=== PATIENT | male | born 1940 | race Two or more races ===

== ENCOUNTER 2017-11-28 08:00 | Inpatient (IN) | payer OTHER ==
--- NOTE | 2017-11-28 07:30 | HP ---
Admitting History and Physical - Admission Chief Complaint: left knee osteoarthritis x years History of Present Illness: 77-year-old male presenting in regard to his left knee. Patient has a long standing history of left knee osteoarthritis. Patient complains of pain, limited range of motion, difficulty ambulating, and acoustical tea with activities of daily living. Patient has failed conservative treatment measures including PO medications, activity modification, exercise program, and injections. At this point as patient has failed conservative treatment measures , he would like to proceed with surgical intervention, a left total knee arthroplasty. History Source: Patient - Past Medical History Cardiovascular: Yes: Hyperlipdemia Musculoskeletal: Yes: Osteoarthritis - Past Surgical History Additional Past Surgical History: see written history & physical. - Smoking History Smoking history: Never smoked Have you smoked in the past 12 months: No - Alcohol/Substance Use Hx Alcohol Use: No Home Medications - Allergies Allergies/Adverse Reactions: Allergies Allergy/AdvReac Type Severity Reaction Status Date / Time No Known Allergies Allergy Verified 11/21/17 17:41 - Home Medications Home Medications: Ambulatory Orders Gabapentin [Neurontin] 100 mg PO TID 11/21/17 Meloxicam 15 mg PO DAILY 11/21/17 Simvastatin 40 mg PO HS 11/21/17 clonazePAM [Klonopin -] 0.5 mg PO TID 11/21/17 Physical Examination Constitutional: Yes: Well Nourished, No Distress Eyes: Yes: Conjunctiva Clear HENT: Yes: Atraumatic, Normocephalic Neck: Yes: Supple Cardiovascular: Yes: Regular Rate and Rhythm Respiratory: Yes: Regular Gastrointestinal: Yes: Soft ...Rectal Exam: Yes: Deferred Musculoskeletal: Yes: Joint Stiffness (left knee), Joint Swelling (left knee) Assessment/Plan 77-year-old male presenting in regard to his left knee. Patient has a long standing history of left knee osteoarthritis. Patient complains of pain, limited range of motion, difficulty ambulating, and acoustical tea with activities of daily living. Patient has failed conservative treatment measures including PO medications, activity modification, exercise program, and injections. At this point as patient has failed conservative treatment measures , he would like to proceed with surgical intervention. Pros, cons, risks, benefits and alternatives of a left total knee arthroplasty were discussed at length. Patient confirma their understanding and consents to proceed with a left total knee arthroplasty.
[~2017-11-28 08:00] MED LIST: CEFAZOLIN 1 GM/D5W 1 GM/50 ML BAG IVPB ONE; ROPIVICAINE 0.2%/MORPH PF/KETOROLAC - 51ML DISP.SYRINGE IA ONE; TRANEXAMIC ACID 1000 MG/10 ML VIAL IVPUSH ONE
[2017-11-28] MEDS ORDERED: CELECOXIB 200 MG CAPSULE ONE (09:28)
[2017-11-28] MEDS ORDERED: PANTOPRAZOLE 40 MG TABLET (FP) ONE (09:28)
[2017-11-28] MEDS ORDERED: oxyCODONE HCL 10 MG SUSTAINED ACTING TABLET ONE (09:28)
[2017-11-28] MEDS ORDERED: GABAPENTIN 300 MG CAPSULE (FP) ONE (09:28)
[2017-11-28] MEDS: PANTOPRAZOLE 40 MG TABLET (FP) PO ONE (09:45)
[2017-11-28] MEDS: CELECOXIB 200 MG CAPSULE PO ONE (09:45)
[2017-11-28] MEDS: GABAPENTIN 300 MG CAPSULE (FP) PO ONE (09:45)
[2017-11-28] MEDS: oxyCODONE HCL 10 MG SUSTAINED ACTING TABLET PO ONE (09:45)
[2017-11-28] MEDS ORDERED: MIDAZOLAM HCL 2 MG/2 ML SINGLE DOSE VIAL ONE (10:43)
[2017-11-28] MEDS ORDERED: BUPIVACAINE LIPOSOME/PF (EXPAREL) 266 MG/20 ML VIAL ONE (10:43)
[2017-11-28] MEDS ORDERED: BUPIVACAINE HCL/PF (5 MG/ML) 30 ML VIAL IJ ONE (10:44)
[2017-11-28] MEDS ORDERED: ceFAZolin SODIUM 1 GM VIAL ONE ×3 (11:30→12:50)
[2017-11-28] MEDS ORDERED: VANCOMYCIN 1,000 MG VIAL (RESTRICTED TO ID ONLY) ONE (11:30)
[2017-11-28] MEDS ORDERED: TRANEXAMIC ACID 1000 MG/10 ML VIAL ONE ×2 (11:30→12:46)
[2017-11-28] MEDS ORDERED: LIDOCAINE HCL/PF 2% SDV 5ML VIAL ONE (12:19)
[2017-11-28] MEDS ORDERED: ROPIVICAINE 0.2%/MORPH PF/KETOROLAC - 51ML DISP.SYRINGE IA ONE ×3 (12:51→16:31)
--- NOTE | 2017-11-28 16:58 | SURG ---
Surgery Embedded Systems Designer Note Embedded Systems Designer: Shant Wang PA-C Date of Service: 11/28/17 Diagnosis: Left knee degenerative joint disease Procedure: Left total knee replacement I was present for the entirety of the operative procedure. For further detail, please refer to operative report.
--- NOTE | 2017-11-28 16:59 | OP ---
Operative Note - Note: Operative Date: 11/28/17 Pre-Operative Diagnosis: Left knee OA Operation: Left TKA Post-Operative Diagnosis: Same as Pre-op Surgeon: Henrry Hughes Battery Parts Assembler: Shant Wang Anesthesia: Spinal Estimated Blood Loss (mls): 300
[2017-11-28] MEDS ORDERED: ONDANSETRON 4 MG/2 ML VIAL IVPUSH PRN (17:06)
[2017-11-28] MEDS ORDERED: oxyCODONE HCL 5 MG TABLET PO PRN ×2 (17:06)
[2017-11-28] MEDS ORDERED: MAG HYDROX/AL HYDROX/SIMETH 30 ML UNIT-DOSE CUP PO PRN (17:07)
[2017-11-28] MEDS ORDERED: MAGNESIUM HYDROX 2400MG/30ML ORAL SUSPENSION 30 ML CUP PO PRN (17:07)
[2017-11-28] MEDS ORDERED: LACTATED RINGERS SOLUTION 1,000 ML IV SCH (17:15)
[2017-11-28] MEDS ORDERED: KETOROLAC TROMETHAMINE 30 MG/1 ML VIAL IVPUSH SCH (17:15)
[2017-11-28] MEDS ORDERED: traMADol HCL 50 MG TABLET ONE (17:19)
[2017-11-28] MEDS ORDERED: KETOROLAC TROMETHAMINE 30 MG/1 ML VIAL ONE (17:19)
[2017-11-28] MEDS ORDERED: ACETAMINOPHEN INJECTION 100 ML IVPB ONE (17:19)
[2017-11-28] MEDS: ACETAMINOPHEN 1000 MG/100 ML VIAL (NON FORMULARY) IVPB ONE (17:30)
[2017-11-28] MEDS ORDERED: CEFAZOLIN 1 GM/D5W 1 GM/50 ML BAG IVPB SCH (18:00)
[2017-11-28] MEDS ORDERED: traMADol HCL 50 MG TABLET PO SCH (18:00)
[2017-11-28] MEDS ORDERED: ACETAMINOPHEN 325 MG TABLET (FP) PO SCH (18:00)
[2017-11-28] MEDS: ONDANSETRON 4 MG/2 ML VIAL IVPUSH PRN (21:06)
[2017-11-28] MEDS: oxyCODONE HCL 10 MG SUSTAINED ACTING TABLET PO SCH (22:00)
[2017-11-28] MEDS: CEFAZOLIN 1 GM/D5W 1 GM/50 ML BAG IVPB SCH (23:01)
[2017-11-28] MEDS: CELECOXIB 200 MG CAPSULE PO SCH (23:01)
[2017-11-28] MEDS: ATORVASTATIN CA 20 MG TABLET (FP) PO SCH (23:02)
[2017-11-28] MEDS: SENNOSIDES/DOCUSATE COMBO (SENNA PLUS) TABLET (UD) PO SCH (23:02)
[2017-11-28] MEDS: ACETAMINOPHEN 325 MG TABLET (FP) PO SCH (23:04)
[2017-11-28] MEDS: ASCORBIC ACID 500 MG TABLET (FP) PO SCH (23:04)
[2017-11-28] MEDS: GABAPENTIN 300 MG CAPSULE (FP) PO SCH ×2 (23:06)
[2017-11-28] MEDS: KETOROLAC TROMETHAMINE 30 MG/1 ML VIAL IVPUSH SCH (23:07)
[2017-11-29] MEDS: clonazePAM 0.5 MG TABLET PO SCH ×4 (00:09→21:16)
[2017-11-29] MEDS: traMADol HCL 50 MG TABLET PO SCH ×5 (00:25→23:38)
[2017-11-29] MEDS ORDERED: DEXAMETHASONE SOD PHOSPHATE 10 MG/1 ML VIAL IVPB ONE (01:00)
[2017-11-29] MEDS ORDERED: DEXAMETHASONE SOD PHOSPHATE 10 MG/1 ML VIAL ONE (01:14)
[2017-11-29] MEDS: CEFAZOLIN 1 GM/D5W 1 GM/50 ML BAG IVPB SCH (04:04)
[2017-11-29] MEDS ORDERED: traMADol HCL 50 MG TABLET ONE (04:47)
[2017-11-29] MEDS: ACETAMINOPHEN 325 MG TABLET (FP) PO SCH ×4 (05:49→23:38)
[2017-11-29] MEDS: KETOROLAC TROMETHAMINE 30 MG/1 ML VIAL IVPUSH SCH ×2 (05:50→11:48)
[2017-11-29] MEDS: CELECOXIB 200 MG CAPSULE PO ONE (07:35)
[2017-11-29] MEDS: GABAPENTIN 300 MG CAPSULE (FP) PO ONE (07:35)
[2017-11-29] MEDS: PANTOPRAZOLE 40 MG TABLET (FP) PO ONE (07:35)
[2017-11-29] MEDS: oxyCODONE HCL 10 MG SUSTAINED ACTING TABLET PO ONE (07:35)
[2017-11-29] MEDS: LACTATED RINGERS SOLUTION 1,000 ML IV SCH ×2 (07:36→17:18)
[2017-11-29] MEDS: ACETAMINOPHEN 1000 MG/100 ML VIAL (NON FORMULARY) IVPB ONE (07:36)
[2017-11-29 08:10] LABS: HEMATOCRIT 37.7 % (35.4-49); HEMOGLOBIN 13.2 GM/dl (11.7-16.9); MCHC 35.1 g/dl (32.0-35.9); MEAN CELL VOLUME 88.4 fl (80-96); MEAN PLT VOLUME 7.4 fl (7.5-11.1); PLATELET COUNT 327 K/MM3 (134-434); RBC 4.26 M/mm3 (4.00-5.60); RDW 13.1 % (11.9-15.9); WHITE BLOOD COUNT 7.2 K/mm3 (4.0-10.8)
[2017-11-29] MEDS: ASPIRIN 325 MG TABLET PO SCH (08:17)
[2017-11-29 08:39] LABS: ANION GAP 7 (8-16); BLOOD UREA NITROGEN 15 mg/dl (7-18); CALCIUM 8.8 mg/dl (8.4-10.2); CHLORIDE 98 mmol/L (98-107); CO2 25 mmol/L (22-28); CREATININE 0.8 mg/dl (0.6-1.3); GLUCOSE,RANDOM 139 mg/dl (74-106); POTASSIUM 4.2 mmol/L (3.5-5.1); SODIUM 130 mmol/L (136-145)
[2017-11-29] MEDS: PANTOPRAZOLE 40 MG TABLET (FP) PO SCH (09:46)
[2017-11-29] MEDS: CELECOXIB 200 MG CAPSULE PO SCH ×2 (09:46→21:16)
[2017-11-29] MEDS: GABAPENTIN 300 MG CAPSULE (FP) PO SCH ×4 (09:46→21:17)
[2017-11-29] MEDS: SENNOSIDES/DOCUSATE COMBO (SENNA PLUS) TABLET (UD) PO SCH ×2 (09:46→21:18)
[2017-11-29] MEDS: MULTIVITAMINS (DAILY MVI) TABLET (FP) PO SCH (09:46)
[2017-11-29] MEDS: ASCORBIC ACID 500 MG TABLET (FP) PO SCH ×2 (09:46→21:18)
[2017-11-29] MEDS ORDERED: oxyCODONE HCL 10 MG SUSTAINED ACTING TABLET ONE (09:50)
[2017-11-29] MEDS: oxyCODONE HCL 10 MG SUSTAINED ACTING TABLET PO SCH ×2 (09:51→21:17)
--- NOTE | 2017-11-29 10:08 | PN ---
Progress Note, Physician Chief Complaint: day #/1 s/p left TKR - Current Medication List Current Medications: Active Medications Acetaminophen (Tylenol -) 650 mg PO Q6H [facility] Stop: 12/01/17 23:19 Last Admin: 11/29/17 05:49 Dose: 650 mg Al Hydroxide/Mg Hydroxide (Mylanta Oral Suspension -) 30 ml PO Q4H PRN PRN Reason: DYSPEPSIA Ascorbic Acid (Vitamin C -) 500 mg PO BID [facility] Last Admin: 11/29/17 09:46 Dose: 500 mg Aspirin (Asa -) 325 mg PO DAILY@0800 [facility] Last Admin: 11/29/17 08:17 Dose: 325 mg Atorvastatin Calcium (Lipitor -) 20 mg PO HS [facility] Last Admin: 11/28/17 23:02 Dose: 20 mg Celecoxib (Celebrex -) 200 mg PO BID [facility] Last Admin: 11/29/17 09:46 Dose: 200 mg Clonazepam (Klonopin -) 0.5 mg PO TID [facility] Last Admin: 11/29/17 05:58 Dose: 0.5 mg Fentanyl (Sublimaze Injection -) 50 mcg IVPUSH [id number] PRN PRN Reason: PAIN-PACU ORDER X 4 DOSES ONLY Gabapentin (Neurontin -) 300 mg PO BID [facility] Last Admin: 11/29/17 09:46 Dose: 300 mg Gabapentin (Neurontin -) 300 mg PO BID [facility] Stop: 12/01/17 21:59 Last Admin: 11/29/17 09:52 Dose: Not Given Lactated Ringer's (Lactated Ringers Solution) 1,000 mls @ 125 mls/hr IV ASDIR [facility] Last Admin: 11/29/17 07:36 Dose: Not Given Ketorolac Tromethamine (Toradol Injection -) 15 mg IVPUSH Q6H [facility] Stop: 11/29/17 11:51 Last Admin: 11/29/17 05:50 Dose: 15 mg Magnesium Hydroxide (Milk Of Magnesia -) 30 ml PO PRN PRN PRN Reason: CONSTIPATION Multivitamins/Minerals/Vitamin C (Tab-A-Vit -) 1 tab PO DAILY [facility] Last Admin: 11/29/17 09:46 Dose: 1 tab Ondansetron HCl (Zofran Injection) 4 mg IVPUSH Q6H PRN PRN Reason: NAUSEA Last Admin: 11/28/17 21:06 Dose: 4 mg Oxycodone HCl (Roxicodone -) 5 mg PO Q3H PRN PRN Reason: PAIN LEVEL 1-5 Oxycodone HCl (Roxicodone -) 10 mg PO Q3H PRN PRN Reason: PAIN LEVEL 6-10 Oxycodone HCl (Oxycontin -) 10 mg PO BID [facility] Stop: 12/01/17 17:06 Last Admin: 11/29/17 09:51 Dose: 10 mg Pantoprazole Sodium (Protonix -) 40 mg PO DAILY [facility] Last Admin: 11/29/17 09:46 Dose: 40 mg Senna/Docusate Sodium (Pericolace -) 1 tablet PO BID [facility] Last Admin: 11/29/17 09:46 Dose: 1 tablet Tramadol HCl (Ultram -) 50 mg PO Q6H [facility] Last Admin: 11/29/17 05:50 Dose: 50 mg - Objective Vital Signs: Vital Signs Temperature 97.8 F 11/29/17 09:42 Pulse Rate 84 11/29/17 09:42 Respiratory Rate 18 11/29/17 09:42 Blood Pressure 107/66 11/29/17 09:42 O2 Sat by Pulse Oximetry (%) 93 L 11/29/17 06:37 Labs: CBC, BMP 11/29/17 07:25 11/29/17 07:25 Assessment/Plan Pt ambulating today, currently resting comfortably in chair. Says he is not having much postop pain
[2017-11-29] MEDS ORDERED: PT OWN MED DRAWER 7, Y5N ONE (11:46)
[2017-11-29 12:59] VITALS: BMI 20.3
[2017-11-29] MEDS: ATORVASTATIN CA 20 MG TABLET (FP) PO SCH (21:18)
[2017-11-30] MEDS: traMADol HCL 50 MG TABLET PO SCH ×2 (05:48→11:17)
[2017-11-30] MEDS: clonazePAM 0.5 MG TABLET PO SCH (05:50)
[2017-11-30] MEDS: ACETAMINOPHEN 325 MG TABLET (FP) PO SCH (05:50)
[2017-11-30 06:20] VITALS: BP 103/62; PULSE 95; TEMP 97.6
[2017-11-30 08:42] LABS: HEMATOCRIT 35.3 % (35.4-49); HEMOGLOBIN 12.1 GM/dl (11.7-16.9); MCH 30.5 pg (25.7-33.7); MCHC 34.4 g/dl (32.0-35.9); MEAN CELL VOLUME 88.5 fl (80-96); MEAN PLT VOLUME 7.5 fl (7.5-11.1); PLATELET COUNT 353 K/MM3 (134-434); RBC 3.98 M/mm3 (4.00-5.60)
[2017-11-30] MEDS: ASPIRIN 325 MG TABLET PO SCH (08:47)
[2017-11-30] MEDS: MULTIVITAMINS (DAILY MVI) TABLET (FP) PO SCH (09:14)
[2017-11-30] MEDS: GABAPENTIN 300 MG CAPSULE (FP) PO SCH (09:14)
[2017-11-30] MEDS: ASCORBIC ACID 500 MG TABLET (FP) PO SCH (09:14)
[2017-11-30] MEDS: oxyCODONE HCL 10 MG SUSTAINED ACTING TABLET PO SCH (09:14)
[2017-11-30] MEDS: SENNOSIDES/DOCUSATE COMBO (SENNA PLUS) TABLET (UD) PO SCH (09:14)
[2017-11-30] MEDS: CELECOXIB 200 MG CAPSULE PO SCH (09:16)
[2017-11-30] MEDS: PANTOPRAZOLE 40 MG TABLET (FP) PO SCH (09:16)
--- NOTE | 2017-11-30 10:03 | DS ---
Physical Examination Vital Signs: Vital Signs Temperature 97.6 F 11/30/17 06:19 Pulse Rate 95 H 11/30/17 06:19 Respiratory Rate 16 11/30/17 07:48 Blood Pressure 103/62 11/30/17 06:19 O2 Sat by Pulse Oximetry (%) 97 11/30/17 07:48 Labs: CBC, BMP 11/30/17 07:20 11/29/17 07:25 Discharge Summary Reason For Visit: LEFT KNEE OSTEOARTHRITIS Current Active Problems Osteoarthritis of left knee (Acute) Procedures: Principal: Left TKA Hospital Course: Admitted for elective surgery. Procedure performed without complications. Pt received postoperative antibiotic prophylaxis and DVT ppx. Ambulated with physical therapy. Stable for discharge home with outpatient followup. Condition: Stable - Instructions Diet, Activity, Other Instructions: Dr Hughes - Knee Replacement Instructions Keep the Aquacel dressing on until removed by Dr. Hughes in 10-14 days - it is antibacterial and waterproof and you can shower with it on. Call the office for a follow-up appointment with Dr. Hughes in 10-14 days. Take one Aspirin 325mg daily for 6 weeks to prevent blood clots in your legs. Take one Pantoprazole 40mg daily for 6 weeks to protect against heartburn and ulcers. Resume taking meloxicam 15mg daily to reduce swelling and inflammation. Take Cephalexin (antibiotic) 3x/day for 10 days to help prevent skin infection. Take a multivitamin, stool softener, and extra vitamin C supplement daily. For pain: *Mild pain (1-3/10): Take 1 Tramadol tablet every 4 hours as needed. Moderate pain (4-6/10): Take 1 Tramadol tablet and 1 Percocet tablet every 4 hours as needed. Severe pain (7-10/10): Take 1 Tramadol tablet and 2 Percocet tablets every 4 hours as needed. Activity: You can put as much weight on the operative leg as you want. Right after you get home, there will be a physical therapist coming to your house to help you walk around and bend/straighten your knee. After your follow-up appointment, you will be sent for more intensive outpatient physical therapy which will include machines and equipment that the home therapist cannot bring to your house. Always use a walker or cane for balance and to prevent falls. Expect to see swelling/bruising from the operative site all the way down to your toes. Wear the compression stocking on the operative side during the day to minimize how much swelling there is in your foot/ankle. Don't wear the stocking at night. You don't have to wear a stocking on the other side. Disposition: VNS/HOME HEALTH CARE - Home Medications Comprehensive Discharge Medication List: Ambulatory Orders Gabapentin [Neurontin] 100 mg PO TID 11/21/17 Simvastatin 40 mg PO HS 11/21/17 clonazePAM [Klonopin -] 0.5 mg PO TID 11/21/17 Ascorbic Acid [Vitamin C -] 500 mg PO BID tablet 11/30/17 Aspirin [ASA -] 325 mg PO DAILY@0800 tablet 11/30/17 Cephalexin Monohydrate [Keflex -] 500 mg PO TID #30 capsule 11/30/17 Meloxicam 15 mg PO DAILY #60 tablet 11/30/17 Multivitamins [Multivit ([facility] Formulary)] 1 tab PO DAILY tab 11/30/17 Oxycodone HCl/Acetaminophen [Percocet 5-325 mg Tablet] 1 - 2 tab PO Q4H PRN #60 tablet MDD 8 11/30/17 Pantoprazole Sodium [Protonix -] 40 mg PO DAILY #40 tablet.ec 11/30/17 Sennosides/Docusate Sodium [Pericolace -] 1 tablet PO BID tablet 11/30/17 traMADol HCL [Ultram -] 50 mg PO Q4H PRN #90 tablet MDD 6 11/30/17
[2017-11-30] MEDS: ONDANSETRON 4 MG/2 ML VIAL IVPUSH PRN (11:17)
--- NOTE | 2017-12-03 17:33 | PATH ---
Surgical Pathology Report Patient Name: DEA SLATER Med. Rec. #: [id number] /Age/Gender: 1940 (Age: 77) / M Account: [id number] Location: [facility] MED-SURG Taken: 11/28/2017 Received: 11/28/2017 Reported: 12/03/2017 Physicians: Henrry Hughes M.D. Specimen(s) Received LEFT KNEE BONE AND SOFT TISSUE Clinical History Osteoarthritis left knee Final Diagnosis LEFT KNEE BONE AND SOFT TISSUE: DEGENERATIVE JOINT DISEASE, LEFT KNEE. Electronically Signed Bonnie Smith M.D. Gross Description Received in formalin labeled "left knee bone and soft tissue," is a 15.0 x 14.5 x 2.3 cm aggregate of multiple soto, irregular portions of bone and soft tissue, consistent with knee bones. There are multiple areas of eburnation present, measuring up to 3.8 cm in greatest dimension. The remaining articular surfaces are soto-yellow and diffusely granular. The underlying trabecular bone is yellow and hard. Petrographer sections are submitted in one cassette, following decalcification. /11/29/2017 saudi11/29/2017
--- NOTE | 2017-12-05 08:36 | SPEC ---
DATE OF OPERATION: 11/28/2017 PREOPERATIVE DIAGNOSIS: Left knee osteoarthritis. POSTOPERATIVE DIAGNOSIS: Left knee osteoarthritis. PROCEDURE: Left total knee replacement. ATTENDING: Irving Jett MD PLUMBING DESIGNER: ANESTHESIA: Spinal plus sedation. ESTIMATED BLOOD LOSS: 300 mL COMPLICATIONS: None. SPECIMENS: Resected bone was sent for pathological analysis. DISPOSITION: The patient was sent to the PACU in stable condition. IMPLANT USED: Alvin Triathlon size 6 femoral component, size 5 tibial component with 50-mm stem, 19-mm total stabilized polyethylene component, 35-mm patellar component. INDICATIONS: This is a 77-year-old male who presented to the office with severe bilateral knee arthritis. He had a significant varus deformity and walked with a varus thrust gait. He was initially treated nonoperatively with injections, medications, and physical therapy but failed conservative management. He was therefore indicated for a left total knee replacement. The risks, benefits, and alternatives to the procedure were explained to the patient in great detail, and he elected to proceed with the surgery. DESCRIPTION OF PROCEDURE: On the day of surgery, the patient was taken to the operating room and placed on the OR table. Spinal anesthesia was administered by the anesthesiologist. The patient was then positioned supine on the table and all bony prominences were padded. A nonsterile tourniquet was placed on the proximal thigh. The knee was then prepped and draped in the usual sterile fashion and intravenous antibiotics were given for infection prophylaxis. A surgical time-out was then performed with the team, and the patients identity, procedure, side, availability of implants, and the administration of antibiotics was confirmed. The leg was then elevated and exsanguinated, and the tourniquet was inflated. With the knee flexed, a midline incision was made and carried down through the subcutaneous fat to the underlying retinaculum. A medial parapatellar arthrotomy was performed. This was followed by a subperiosteal dissection of the tissue off the proximal, medial tibia. A portion of fat pad was removed from under the patellar tendon, and a small portion of fat was excised off the distal supracondylar femur. The knee was then flexed further and the anterior horn of the lateral meniscus was released from the midline. Next, the anterior and posterior cruciate ligaments were transected. Osteophytes were removed from both the femur and tibia. Grade 4 changes were noted diffusely throughout the knee. Hohmann retractors were then placed around the distal femur. The starting drill was used to enter the intramedullary canal. The starting point had been chosen by checking the radiographs and anatomy. Proper alignment and intramedullary placement was then confirmed by placing the long narrow cheryl into the femur. Next, the distal femoral cutting guide was adjusted to 6 degrees of valgus and pinned to the femur. The bone resection was assessed using an mahnaz-wing. An approximately 10mm distal cut was made and the cut pieces measured. Once this was complete, the sizing guide was used to determine which size femoral component should be used. Next, the appropriately sized 4-in-1 cutting block was then placed at the correct amount of external rotation and the mahnaz wing was used to assure that there would be no notching of the anterior cortex of the femur. Once this was done, Hohmann retractors were used to protect the medial and lateral collateral ligaments, and all appropriate bone cuts were made. Attention was then turned to the tibia. Hohmann retractors were used to translate the tibia anteriorly and protect the collateral ligaments. The medial and lateral menisci were removed. The extramedullary tibial alignment guide was then placed and adjusted for rotation, varus/valgus, and slope. The height of the cutting block was adjusted to the level of the desired bone resection and then pinned in place. The proximal tibia was then cut with a saw and the bone was removed and measured. Once this was completed, trial components were placed and the knee was taken through a full range of motion. Soft tissue balance was assessed in both flexion and extension and found to be appropriate. The knee was stable throughout the full range of motion. The knee was then put into extension and the patella everted. The synovium around the patella was circumscribed with electrocautery. A caliper was used to measure the patellar thickness and a saw was then used to resect the patella at the chondro-osseous junction. The cut surface was then sized and drilled for the appropriate patellar button, with care taken to medialize it. A trial patella was then placed and the knee was again taken through a full range of motion. The knee was found to have both good balance and good patellar tracking. All of the components were removed except the tibial base plate. The appropriate instrumentation was used to drill and punch the proximal tibia for the keel of the final component. All bony surfaces were then cleaned with pulsatile lavage and dried. Bone cement was then prepared on the back table, and final components were cemented in place in the usual fashion. Extruded cement was removed. The polyethylene trial was placed, the knee was put into extension, and axial pressure was applied for compression while the cement hardened. The patellar button was similarly cemented into place. Once the cement had hardened, the knee was taken through a full range of motion to assess stability, balance, and patellar tracking. This was found to be optimal and the trial polyethylene was exchanged for the appropriately sized real implant. The wound was then thoroughly irrigated with normal saline. No. 1 Polysorb and 0 V-Loc 180 barbed sutures were used to close the arthrotomy. No. 1 Polysorb and 2-0 Polysorb sutures were used in the subcutaneous tissues. The skin was closed using both 3-0 V-Loc 90 suture in a running subcuticular fashion and SwiftSet skin adhesive. Once this was completed a sterile Aquacel dressing and compressive Kiran-wrap was applied. The tourniquet was then deflated and the patient was awakened and taken to the PACU in stable condition. ADDENDUM 1: Due to significant medial erosion due to varus deformity, a tibial reduction osteotomy was performed to remove osteophytes and narrow the tibial plateau to accept the size 5 tibial component. In doing so, we were able to remove most of the defect in the tibia such that a medial augment was not required. There was considerable laxity in the MCL, and for this reason a 19-mm polyethylene component was chosen. ADDENDUM 2: After final implants were placed, a 3-minute dilute Betadine lavage was performed. Following this, the wound was thoroughly irrigated with normal saline and wound closure was begun. IRVING JETT M.D. [id number]
== END 2017-11-30 12:00 | disposition home health service (06) | DRG 470 ==
LOC: FM/S 09:23
PROVIDERS: ADMIT Student in an Organized Health Care Education/Training Program; ATTEND Student in an Organized Health Care Education/Training Program
PROC: 0SRD0JA Replacement of Left Knee Joint with Synthetic Substitute, Uncemented, Open Approach (ICD-10-PCS; principal; 2017-11-28 13:32)
DX: M17.12 Unilateral primary osteoarthritis, left knee (principal); E78.5 Hyperlipidemia, unspecified
CPT/HCPCS: 36415; 73560-TC-LT-FY; 80048; 85027; 88304-TC; 88311-TC; 94010; 94760; 97116-GP; 97162-GP; J0131; J1100

== ENCOUNTER 2018-06-12 08:00 | Inpatient (IN) | payer OTHER ==
[2018-06-03 16:43] VITALS: BMI 19.5
[~2018-06-12 08:00] MED LIST changes: -CEFAZOLIN 1 GM/D5W 1 GM/50 ML BAG IVPB ONE; +CEFAZOLIN 2 GM/D5W 2 GM/50 ML ML IVPB ONE; +CELECOXIB 200 MG CAPSULE PO ONE; +GABAPENTIN 300 MG CAPSULE (FP) PO ONE; +PANTOPRAZOLE 40 MG TABLET (FP) PO ONE; +oxyCODONE HCL 10 MG SUSTAINED ACTING TABLET PO ONE
[2018-06-16] MEDS ORDERED: SODIUM CHLORIDE 0.9% P/F 10 ML VIAL IJ ONE (06:59)
[2018-06-16] MEDS ORDERED: BUPIVACAINE LIPOSOME/PF (EXPAREL) 266 MG/20 ML VIAL ONE (06:59)
[2018-06-16] MEDS ORDERED: MIDAZOLAM HCL 2 MG/2 ML SINGLE DOSE VIAL ONE (06:59)
[2018-06-16] MEDS ORDERED: CELECOXIB 200 MG CAPSULE ONE (07:05)
[2018-06-16] MEDS ORDERED: PANTOPRAZOLE 40 MG TABLET (FP) ONE (07:05)
[2018-06-16] MEDS ORDERED: BUPIVACAINE HCL/PF 0.5% (5MG/ML) 10 ML VIAL ONE (07:13)
[2018-06-16] MEDS ORDERED: LIDOCAINE 1% P/F 10 MG/ML VIAL ONE (07:18)
[2018-06-16] MEDS ORDERED: ceFAZolin SODIUM 1 GM VIAL ONE ×2 (07:30→08:31)
[2018-06-16] MEDS ORDERED: VANCOMYCIN 1,000 MG VIAL (RESTRICTED TO ID ONLY) ONE (07:30)
[2018-06-16] MEDS ORDERED: TRANEXAMIC ACID 1000 MG/10 ML VIAL ONE ×2 (07:30→08:31)
--- NOTE | 2018-06-16 07:49 | HP ---
Admitting History and Physical - Admission Chief Complaint: Right knee osteoarthritis x years History Source: Patient - Past Medical History Cardiovascular: Yes: Hyperlipdemia Gastrointestinal: Yes: GERD Musculoskeletal: Yes: Osteoarthritis Additional Past Medical History: 77 year old male presents today regarding his right knee. Longstanding history of right knee osteoarthritis. Patient complains of pain, limited ROM, difficulty ambulating and difficulty completing ADLs. Patient has failed conservative treatment measures including PO medication, activity modification, injections and an exercise program. At this point, patient wishes to proceed with surgical intervention - right total knee arthroplasty. - Past Surgical History Additional Past Surgical History: See written history & physical. Left TKR November 2017 - Smoking History Smoking history: Never smoked Have you smoked in the past 12 months: No - Alcohol/Substance Use Hx Alcohol Use: No Home Medications - Allergies Allergies/Adverse Reactions: Allergies Allergy/AdvReac Type Severity Reaction Status Date / Time No Known Allergies Allergy Verified 11/28/17 10:02 - Home Medications Home Medications: Ambulatory Orders Simvastatin 40 mg PO HS 11/21/17 clonazePAM [Klonopin -] 0.5 mg PO TID 11/21/17 Ascorbic Acid [Vitamin C -] 500 mg PO BID tablet 11/30/17 Meloxicam 15 mg PO DAILY #60 tablet 11/30/17 Multivitamins [Multivit ([facility] Formulary)] 1 tab PO DAILY tab 11/30/17 traMADol HCL [Ultram -] 50 mg PO Q4H PRN #90 tablet MDD 6 11/30/17 Aspirin [Adult Aspirin] 81 mg PO DAILY 06/03/18 Baclofen 10 mg PO DAILY 06/03/18 Omeprazole 40 mg PO DAILY 06/03/18 Review of Systems - Review of Systems Musculoskeletal: reports: Crepitus (right knee), Decreased ROM (right knee), Joint Pain (right knee), Joint Swelling (right knee) Physical Examination Vital Signs: Vital Signs Temperature 98.2 F 06/16/18 06:51 Pulse Rate 64 06/16/18 06:51 Respiratory Rate 18 06/16/18 06:51 Blood Pressure 102/69 06/16/18 06:51 O2 Sat by Pulse Oximetry (%) Constitutional: Yes: Well Nourished, No Distress Eyes: Yes: Conjunctiva Clear HENT: Yes: Atraumatic, Normocephalic Neck: Yes: Supple Cardiovascular: Yes: Regular Rate and Rhythm Respiratory: Yes: Regular Gastrointestinal: Yes: Soft ...Rectal Exam: Yes: Deferred Musculoskeletal: Yes: Joint Stiffness (right knee), Joint Swelling (right knee) Assessment/Plan 77 year old male presents today regarding his right knee. Longstanding history of right knee osteoarthritis. Patient complains of pain, limited ROM, difficulty ambulating and difficulty completing ADLs. Patient has failed conservative treatment measures including PO medication, activity modification, injections and an exercise program. At this point, patient wishes to proceed with surgical intervention - right total knee arthroplasty. Pros, cons, risks, benefits & alternatives of a right total knee arthroplasty were discussed with the patient at length. Patient confirms his understanding and consents to proceed with a right total knee arthroplasty.
[2018-06-16] MEDS ORDERED: ROPIVICAINE 0.2%/MORPH PF/KETOROLAC - 51ML DISP.SYRINGE IA ONE ×3 (08:07→11:03)
[2018-06-16] MEDS ORDERED: PROPOFOL 20 ML ONE ×2 (08:31→10:24)
[2018-06-16] MEDS ORDERED: DEXAMETHASONE SOD PHOSPHATE 4 MG/1 ML VIAL ONE (08:31)
[2018-06-16] MEDS ORDERED: KETOROLAC TROMETHAMINE 30 MG/1 ML VIAL ONE (08:31)
[2018-06-16] MEDS ORDERED: ONDANSETRON 4 MG/2 ML VIAL ONE (08:31)
[2018-06-16] MEDS ORDERED: TRANEXAMIC ACID 1000 MG/10 ML VIAL IVPB ONE ×2 (09:04→11:03)
[2018-06-16] MEDS ORDERED: VANCOMYCIN 1,000 MG VIAL (RESTRICTED TO ID ONLY) IVPB ONE ×2 (09:05→11:03)
--- NOTE | 2018-06-16 11:39 | OP ---
Operative Note - Note: Operative Date: 06/16/18 Pre-Operative Diagnosis: right knee OA Operation: right TKA Post-Operative Diagnosis: Same as Pre-op Surgeon: Henrry Hughes Consulting Analyst: Zulay Valdez Anesthesia: Spinal Estimated Blood Loss (mls): 200
[2018-06-16] MEDS ORDERED: ACETAMINOPHEN 1000 MG/100 ML VIAL (NON FORMULARY) IVPB ONE ×2 (11:41→12:07)
[2018-06-16] MEDS ORDERED: MAGNESIUM HYDROX 2400MG/30ML ORAL SUSPENSION 30 ML CUP PO PRN (11:43)
[2018-06-16] MEDS ORDERED: MAG HYDROX/AL HYDROX/SIMETH 30 ML UNIT-DOSE CUP PO PRN (11:43)
[2018-06-16] MEDS ORDERED: ONDANSETRON 4 MG/2 ML VIAL IVPUSH PRN (11:43)
[2018-06-16] MEDS ORDERED: LACTATED RINGERS SOLUTION 1,000 ML IV SCH (11:45)
[2018-06-16] MEDS ORDERED: ACETAMINOPHEN INJECTION 100 ML IVPB ONE (11:58)
[2018-06-16] MEDS ORDERED: traMADol HCL 50 MG TABLET PO ONE (12:05)
[2018-06-16] MEDS: traMADol HCL 50 MG TABLET PO SCH ×3 (13:56→23:18)
[2018-06-16] MEDS: clonazePAM 0.5 MG TABLET PO SCH ×2 (14:08→21:15)
[2018-06-16] MEDS: KETOROLAC TROMETHAMINE 30 MG/1 ML VIAL IVPUSH SCH ×2 (17:50→23:18)
[2018-06-16] MEDS: CEFAZOLIN 2 GM/D5W 2 GM/50 ML ML IVPB SCH (17:50)
[2018-06-16] MEDS ORDERED: DEXAMETHASONE SOD PHOSPHATE 10 MG/1 ML VIAL IVPB ONE (20:00)
--- NOTE | 2018-06-16 20:13 | SPEC ---
DATE OF OPERATION: 06/16/2018 PREOPERATIVE DIAGNOSIS: Right knee osteoarthritis. POSTOPERATIVE DIAGNOSIS: Right knee osteoarthritis. PROCEDURE: Right total knee replacement. ATTENDING: Irving Jett MD CARD PLACER: JERED Sifuentes ANESTHESIA: Spinal plus sedation. ESTIMATED BLOOD LOSS: 200 mL COMPLICATIONS: None. DISPOSITION: The patient was transferred to the PACU in stable condition. IMPLANTS USED: Somis Triathlon size 6 femoral component, Somis Triathlon size 5 tibial component with 50-mm stem, 16-mm total-stabilized polyethylene component, 32-mm patellar component. INDICATIONS: This is a 77-year-old male who presented to the office with severe bilateral knee pain. He was seen and examined by Dr. Jett, diagnosed with severe bilateral knee osteoarthritis. The patient underwent a left total knee replacement on November 28, 2017, and did very well postop. He continued to have severe right knee pain, deformity, and ambulatory dysfunction and was, therefore, indicated for a right total knee replacement. The risks, benefits, and alternatives to the procedure were explained to the patient and his family, and they elected to proceed with the surgery. On the day of surgery, the patient was taken to the operating room and placed on the OR table. Spinal anesthesia was administered by the anesthesiologist. The patient was then positioned supine on the table and all bony prominences were padded. A nonsterile tourniquet was placed on the proximal thigh. The knee was then prepped and draped in the usual sterile fashion and intravenous antibiotics were given for infection prophylaxis. A surgical time-out was then performed with the team, and the patients identity, procedure, side, availability of implants, and the administration of antibiotics was confirmed. The leg was then elevated and exsanguinated, and the tourniquet was inflated. With the knee flexed, a midline incision was made and carried down through the subcutaneous fat to the underlying retinaculum. A medial parapatellar arthrotomy was performed. This was followed by a subperiosteal dissection of the tissue off the proximal, medial tibia. A portion of fat pad was removed from under the patellar tendon, and a small portion of fat was excised off the distal supracondylar femur. The knee was then flexed further and the anterior horn of the lateral meniscus was released from the midline. Next, the anterior and posterior cruciate ligaments were transected. Osteophytes were removed from both the femur and tibia. Grade 4 changes were noted diffusely throughout the knee. Hohmann retractors were then placed around the distal femur. The starting drill was used to enter the intramedullary canal. The starting point had been chosen by checking the radiographs and anatomy. Proper alignment and intramedullary placement was then confirmed by placing the long narrow cheryl into the femur. Next, the distal femoral cutting guide was adjusted to 6 degrees of valgus and pinned to the femur. The bone resection was assessed using an mahnaz-wing. An approximately 10mm distal cut was made and the cut pieces measured. Once this was complete, the sizing guide was used to determine which size femoral component should be used. Next, the appropriately sized 4-in-1 cutting block was then placed at the correct amount of external rotation and the mahnaz wing was used to assure that there would be no notching of the anterior cortex of the femur. Once this was done, Hohmann retractors were used to protect the medial and lateral collateral ligaments, and all appropriate bone cuts were made. Attention was then turned to the tibia. Hohmann retractors were used to translate the tibia anteriorly and protect the collateral ligaments. The medial and lateral menisci were removed. The extramedullary tibial alignment guide was then placed and adjusted for rotation, varus/valgus, and slope. The height of the cutting block was adjusted to the level of the desired bone resection and then pinned in place. The proximal tibia was then cut with a saw and the bone was removed and measured. Once this was completed, trial components were placed and the knee was taken through a full range of motion. Soft tissue balance was assessed in both flexion and extension and found to be appropriate. The knee was stable throughout the full range of motion. The knee was then put into extension and the patella everted. The synovium around the patella was circumscribed with electrocautery. A caliper was used to measure the patellar thickness and a saw was then used to resect the patella at the chondro-osseous junction. The cut surface was then sized and drilled for the appropriate patellar button, with care taken to medialize it. A trial patella was then placed and the knee was again taken through a full range of motion. The knee was found to have both good balance and good patellar tracking. All of the components were removed except the tibial base plate. The appropriate instrumentation was used to drill and punch the proximal tibia for the keel of the final component. All bony surfaces were then cleaned with pulsatile lavage and dried. Bone cement was then prepared on the back table, and final components were cemented in place in the usual fashion. Extruded cement was removed. The polyethylene trial was placed, the knee was put into extension, and axial pressure was applied for compression while the cement hardened. The patellar button was similarly cemented into place. Once the cement had hardened, the knee was taken through a full range of motion to assess stability, balance, and patellar tracking. This was found to be optimal and the trial polyethylene was exchanged for the appropriately sized real implant. The wound was then thoroughly irrigated with normal saline. No. 1 Polysorb and 0 VLoc 180 barbed sutures were used to close the arthrotomy. No. 1 Polysorb and 2-0 Polysorb sutures were used in the subcutaneous tissues. The skin was closed using both 3-0 VLoc 90 suture in a running subcuticular fashion and SwiftSet skin adhesive. Once this was completed a sterile Aquacel dressing and compressive Kiran-wrap was applied. The tourniquet was then deflated and the patient was awakened and taken to the PACU in stable condition. ADDENDUM: After final implants were placed, a 3-minute dilute Betadine lavage was performed. Following this, the wound was thoroughly irrigated with normal saline via pulsatile lavage and wound closure was begun. IRVING JETT M.D. [id number]
[2018-06-16] MEDS: SENNOSIDES/DOCUSATE COMBO (SENNA PLUS) TABLET (UD) PO SCH (21:14)
[2018-06-16] MEDS: ATORVASTATIN CA 20 MG TABLET (FP) PO SCH (21:15)
[2018-06-16] MEDS: CELECOXIB 200 MG CAPSULE PO SCH (21:15)
[2018-06-16] MEDS: GABAPENTIN 300 MG CAPSULE (FP) PO SCH (21:15)
[2018-06-16] MEDS: ASCORBIC ACID 500 MG TABLET (FP) PO SCH (21:34)
[2018-06-17] MEDS: CEFAZOLIN 2 GM/D5W 2 GM/50 ML ML IVPB SCH (01:18)
[2018-06-17] MEDS: KETOROLAC TROMETHAMINE 30 MG/1 ML VIAL IVPUSH SCH (05:37)
[2018-06-17] MEDS: traMADol HCL 50 MG TABLET PO SCH ×4 (05:38→23:50)
[2018-06-17] MEDS: clonazePAM 0.5 MG TABLET PO SCH ×3 (05:38→21:44)
[2018-06-17 08:32] LABS: ANION GAP 7 MMOL/L (8-16); BLOOD UREA NITROGEN 19 mg/dl (7-18); CALCIUM 8.8 mg/dl (8.4-10.2); CHLORIDE 99 mmol/L (98-107); CO2 25 mmol/L (22-28); CREATININE 0.8 mg/dl (0.6-1.3); GLUCOSE,RANDOM 141 mg/dl (74-106); POTASSIUM 4.1 mmol/L (3.5-5.1); SODIUM 131 mmol/L (136-145)
[2018-06-17] MEDS: ASPIRIN 325 MG TABLET PO SCH (09:00)
[2018-06-17] MEDS: BACLOFEN 10 MG TABLET (FP) PO SCH (09:21)
[2018-06-17] MEDS: CELECOXIB 200 MG CAPSULE PO SCH ×2 (09:21→21:44)
[2018-06-17] MEDS: ASCORBIC ACID 500 MG TABLET (FP) PO SCH ×2 (09:22→21:44)
[2018-06-17] MEDS: SENNOSIDES/DOCUSATE COMBO (SENNA PLUS) TABLET (UD) PO SCH ×2 (09:22→21:44)
[2018-06-17] MEDS: MULTIVITAMINS (DAILY MVI) TABLET (FP) PO SCH (09:22)
[2018-06-17] MEDS: PANTOPRAZOLE 40 MG TABLET (FP) PO SCH (09:22)
[2018-06-17] MEDS: GABAPENTIN 300 MG CAPSULE (FP) PO SCH ×2 (09:22→21:44)
[2018-06-17 09:28] LABS: HEMATOCRIT 39.1 % (35.4-49); HEMOGLOBIN 12.9 GM/dl (11.7-16.9); MCH 29.2 pg (25.7-33.7); MCHC 33.1 g/dl (32.0-35.9); MEAN CELL VOLUME 88.2 fl (80-96); MEAN PLT VOLUME 8.9 fl (7.5-11.1); PLATELET COUNT 293 K/MM3 (134-434); RBC 4.43 M/mm3 (4.00-5.60); RDW 13.5 % (11.9-15.9); WHITE BLOOD COUNT 10.2 K/mm3 (4.0-10.8)
--- NOTE | 2018-06-17 11:45 | PN ---
Progress Note (short form) - Note Progress Note: 77M POD1 s/p R TKR under spinal and peripheral nerve blocks for post operative pain relief. Pt states that pain is very well controlled and reports decreased sensation and proprioception in ipsilateral lower leg and foot. Pt also reports nausea after pain medication. AVSS. Instructed patient no to take prn narcotics in the absence of pain. Slight diminishment in ipsilateral sensation and proprioception likely secondary to nerve blocks. Will likely resolve in 2 days. Will monitor.
[2018-06-17] MEDS: ATORVASTATIN CA 20 MG TABLET (FP) PO SCH (21:44)
[2018-06-18] MEDS: clonazePAM 0.5 MG TABLET PO SCH (05:06)
[2018-06-18] MEDS: traMADol HCL 50 MG TABLET PO SCH ×2 (05:06→11:29)
[2018-06-18 07:58] LABS: HEMATOCRIT 36.3 % (35.4-49); HEMOGLOBIN 12.2 GM/dl (11.7-16.9); MCH 29.7 pg (25.7-33.7); MCHC 33.7 g/dl (32.0-35.9); MEAN PLT VOLUME 8.4 fl (7.5-11.1); PLATELET COUNT 256 K/MM3 (134-434); RBC 4.12 M/mm3 (4.00-5.60); RDW 13.5 % (11.9-15.9); WHITE BLOOD COUNT 8.3 K/mm3 (4.0-10.8)
[2018-06-18 08:00] LABS: ANION GAP 8 MMOL/L (8-16); BLOOD UREA NITROGEN 17 mg/dl (7-18); CALCIUM 8.8 mg/dl (8.4-10.2); CHLORIDE 97 mmol/L (98-107); CO2 30 mmol/L (22-28); CREATININE 0.7 mg/dl (0.6-1.3); GLUCOSE,RANDOM 92 mg/dl (74-106); POTASSIUM 4.1 mmol/L (3.5-5.1); SODIUM 135 mmol/L (136-145)
[2018-06-18] MEDS: ASPIRIN 325 MG TABLET PO SCH (08:31)
[2018-06-18 09:20] VITALS: BP 122/76; PULSE 84; TEMP 97.5
[2018-06-18] MEDS: BACLOFEN 10 MG TABLET (FP) PO SCH (09:20)
[2018-06-18] MEDS: CELECOXIB 200 MG CAPSULE PO SCH (09:20)
[2018-06-18] MEDS: ASCORBIC ACID 500 MG TABLET (FP) PO SCH (09:20)
[2018-06-18] MEDS: SENNOSIDES/DOCUSATE COMBO (SENNA PLUS) TABLET (UD) PO SCH (09:20)
[2018-06-18] MEDS: MULTIVITAMINS (DAILY MVI) TABLET (FP) PO SCH (09:20)
[2018-06-18] MEDS: GABAPENTIN 300 MG CAPSULE (FP) PO SCH (09:20)
[2018-06-18] MEDS: PANTOPRAZOLE 40 MG TABLET (FP) PO SCH (09:21)
--- NOTE | 2018-06-18 09:21 | PN ---
Progress Note (short form) - Note Progress Note: Pt seen and examined last night. Doing well. Walked 800+ feet with PT. [employer] commerce marketing analyst phone system used to communicate with patient. AVSS Selected Entries 06/17/18 06/17/18 06/18/18 20:03 21:00 06:00 Temperature 98.1 F 98.2 F Pulse Rate 72 60 Respiratory 18 18 Rate Blood Pressure 114/56 L 113/69 O2 Sat by Pulse 98 100 Oximetry (%) Oxygen Delivery Room Air Method Laboratory Tests 06/17/18 06/17/18 06/18/18 07:35 07:35 07:15 WBC 10.2 8.3 Hgb 12.9 12.2 Hct 39.1 36.3 Plt Count 293 256 Sodium 131 L Potassium 4.1 Chloride 99 Carbon Dioxide 25 Anion Gap 7 L BUN 19 H Creatinine 0.8 Creat Clearance w eGFR > 60 Random Glucose 141 H Calcium 8.8 06/18/18 07:15 WBC Hgb Hct Plt Count Sodium 135 L Potassium 4.1 Chloride 97 L Carbon Dioxide 30 H Anion Gap 8 BUN 17 Creatinine 0.7 Creat Clearance w eGFR > 60 Random Glucose 92 D Calcium 8.8 Gen: NAD RLE: c/d/i, NVID A/P s/p R TKA PT/OOB D/C home after PT; f/u in office in 10-14 days
--- NOTE | 2018-06-18 09:25 | DS ---
Physical Examination Vital Signs: Vital Signs Temperature 97.5 F L 06/18/18 09:18 Pulse Rate 84 06/18/18 09:18 Respiratory Rate 19 06/18/18 09:18 Blood Pressure 122/76 06/18/18 09:18 O2 Sat by Pulse Oximetry (%) 100 06/18/18 06:00 Labs: CBC, BMP 06/18/18 07:15 06/18/18 07:15 Discharge Summary Reason For Visit: RIGHT KNEE OSTEOARTHRITIS Current Active Problems Osteoarthritis of right knee (Acute) Procedures: Principal: right TKA Hospital Course: Admitted for elective surgery. Procedure performed without complications. Pt received postoperative antibiotic prophylaxis and DVT ppx. Ambulated with physical therapy. Stable for discharge home with outpatient followup. Condition: Stable - Instructions Diet, Activity, Other Instructions: Dr. Hughes - Knee Replacement Instructions Keep the Aquacel dressing on until removed by Dr. Hughes in 10-14 days - it is antibacterial and waterproof and you can shower with it on. Call the office for a follow-up appointment with Dr. Hughes in 10-14 days. Take one Aspirin 325mg daily for 6 weeks to prevent blood clots in your legs. After 6 weeks go back to taking 81mg daily. Resume taking Omeprazole daily to protect against heartburn and ulcers. Take Cephalexin (antibiotic) 3x/day for 14 days to help prevent skin infection. Take Celebrex 200mg once daily for 30 days to reduce swelling and inflammation. Take a multivitamin, stool softener, and extra Vitamin C supplement daily. For pain: *Mild pain (1-3/10): Take 1 Tramadol tablet every 4 hours as needed. Moderate pain (4-6/10): Take 1 Tramadol tablet and 1 Percocet tablet every 4 hours as needed. Severe pain (7-10/10): Take 1 Tramadol tablet and 2 Percocet tablets every 4 hours as needed. Activity: You can put as much weight on the operative leg as you want. Right after you get home, there will be a physical therapist coming to your house to help you walk around and bend/straighten your knee. After your follow-up appointment, you will be sent for more intensive outpatient physical therapy which will include machines and equipment that the home therapist cannot bring to your house. Always use a walker or cane for balance and to prevent falls. Expect to see swelling/bruising from the operative site all the way down to your toes. Wear the compression stocking on the operative side during the day to minimize how much swelling there is in your foot/ankle. Don't wear the stocking at night. You don't have to wear a stocking on the other side. Disposition: [facility]/HOME HEALTH CARE - Home Medications Comprehensive Discharge Medication List: Ambulatory Orders Simvastatin 40 mg PO HS 11/21/17 clonazePAM [Klonopin -] 0.5 mg PO TID 11/21/17 Ascorbic Acid [Vitamin C -] 500 mg PO BID tablet 11/30/17 Multivitamins [Multivit ([facility])] 1 tab PO DAILY tab 11/30/17 Baclofen 10 mg PO DAILY 06/03/18 Omeprazole 40 mg PO DAILY 06/03/18 Aspirin [ASA -] 325 mg PO DAILY@0800 tablet 06/18/18 Celecoxib [CeleBREX -] 200 mg PO DAILY #30 capsule 06/18/18 Cephalexin Monohydrate [Keflex -] 500 mg PO TID #42 capsule 06/18/18 Oxycodone HCl/Acetaminophen [Percocet 5-325 mg Tablet] 1 - 2 tab PO Q4H PRN #60 tablet MDD 10 06/18/18 Sennosides/Docusate Sodium [Pericolace -] 2 tablet PO BID tablet 06/18/18 traMADol HCL [Ultram -] 50 mg PO Q4H PRN #42 tablet MDD 6 06/18/18
--- NOTE | 2018-06-18 14:32 | PATH ---
Surgical Pathology Report Patient Name: DEA SLATER Med. Rec. #: [id number] /Age/Gender: 1940 (Age: 77) / M Account: [id number] Location: [facility] MED-SURG Taken: 06/16/2018 Received: 06/16/2018 Reported: 06/18/2018 Physicians: Henrry Hughes M.D. Specimen(s) Received RIGHT KNEE BONE Clinical History Right knee osteoarthritis Final Diagnosis KNEE BONE, RIGHT, TOTAL KNEE REPLACEMENT: DEGENERATIVE JOINT DISEASE. Electronically Signed Carey Wood M.D. Gross Description Received in formalin labeled "right knee bone," is an 11.0 x 8.0 x 2.0 cm aggregate of multiple portions of bone and soft tissue. The tibial plateau measures 8.0 x 6.0 x 2.0 cm. There are multiple areas of eburnation present, measuring up to 2.0 cm in greatest dimension. The remaining articular surfaces are soto-brown and diffusely granular. The underlying trabecular bone is yellow and hard. Brick Washer sections are submitted in one cassette, following decalcification. 06/17/201806/17/2018
== END 2018-06-18 11:36 | disposition home health service (06) | DRG 470 ==
LOC: FM/S 06-16 05:56
PROVIDERS: ADMIT Student in an Organized Health Care Education/Training Program; ATTEND Student in an Organized Health Care Education/Training Program
PROC: 0SRC069 Replacement of Right Knee Joint with Oxidized Zirconium on Polyethylene Synthetic Substitute, Cemented, Open Approach (ICD-10-PCS; principal; 2018-06-16 08:47)
DX: M17.11 Unilateral primary osteoarthritis, right knee (principal); K21.9 Gastro-esophageal reflux disease without esophagitis
CPT/HCPCS: 36415; 73560-TC-RT-FY; 80048; 85027; 88304-TC; 88311-TC; 94760; 97116-GP; 97162-GP; J0131; J0475; J1100